=== PATIENT | female | born 1975 | race Caucasian/White ===

== ENCOUNTER 2016-11-04 21:00 | Inpatient (IN) | payer MEDICAID ==
--- NOTE | ~2016-11-04 | HP ---
Unit #: [id number] #: [id number] Patient: MARIAELENA KRUGER [id number] [facility] [address] [place] [address] [id number] MR#: [id number] NAME: MARIAELENA KRUGER ROOM: 32 Age: 41 Sex: F Admission Date: 11/05/2016 : 1975 Attending Physician: Orion Barajas M.D. Admitting Physician: Orion Barajas M.D. Primary Care Physician: Primary Care Physician No HISTORY AND PHYSICAL HISTORY OF PRESENT ILLNESS Mariaelena is a 41 year old admitted to [address] [place] [address] with depression and verbalizing wanting to hurt herself and reporting auditory hallucinations. She has had other admissions to this facility. PAST MEDICAL HISTORY 1. Crohn's disease. 2. History of migraines. PAST SURGICAL HISTORY 1. Cholecystectomy. 2. Hysterectomy. ALLERGIES No known drug allergies. SOCIAL HISTORY Smokes less than 1/2 pack per day. Denies alcohol and illicit drug use. FAMILY HISTORY Medically noncontributory. REVIEW OF SYSTEMS CONSTITUTIONAL: No fever or chills. HEENT: Denies any sore throat, ear pain or runny nose. CARDIOVASCULAR: Denies chest pain, irregular heart rhythm or palpitations. CHEST: Denies shortness of breath or cough. No hemoptysis. GASTROINTESTINAL: Denies nausea, vomiting, diarrhea or chronic constipation. ENDOCRINE: Denies history of increased thirst or urination. No recent significant weight loss or gain. GENITOURINARY: Denies dysuria, frequency, or hematuria. SKIN: Denies any rashes. HEMATOLOGIC: Denies history of increased bleeding or bruising. MUSCULOSKELETAL: Denies any hot, swollen joints. No generalized muscle pain. NEUROLOGIC: Denies problems with vision or speech. No frequent, severe headaches. No numbness, tingling or weakness in any extremities. Denies loss of bladder or bowel control. CURRENT MEDICATIONS 1. Depakote ER 1000 mg q.h.s. 2. Neurontin 600 mg t.i.d. Unit #: [id number] #: [id number] Patient: MARIAELENA KRUGER 3. Latuda 20 mg daily. 4. Flexeril 5 mg t.i.d. p.r.n. 5. Motrin p.r.n. 6. Milk of Magnesia p.r.n. 7. Maalox p.r.n. 8. Tylenol p.r.n. 9. Topamax 200 mg daily. 10. Strattera 80 mg daily. 11. Lamictal 100 mg daily. 12. Nicotine patch 7 mg daily. PHYSICAL EXAMINATION GENERAL: Alert, well-nourished, in no apparent distress. VITAL SIGNS: Blood pressure 130/78, heart rate 80, respirations 16, temperature 98.6. WEIGHT: 133. HEIGHT: 5 feet 2 inches. SKIN: Warm and dry without rash or lesion. HEENT: Normocephalic. TMs not viewed. Oral and nasal passages clear. Conjunctivae clear. PERRLA. EOMs intact. NECK: Supple without lymphadenopathy or thyromegaly. HEART: Regular rate and rhythm without murmur. LUNGS: Clear. ABDOMEN: Soft, nontender. : Not done. EXTREMITIES: No evidence of cyanosis, clubbing or edema. Moves all without focal deficit. NEUROLOGICAL: Grossly within normal limits. Cranial Nerves: II: Visual potter are intact. III, IV AND : Extraocular movements are intact. Pupils are equal, round and reactive to light. V: Facial sensation is grossly normal. VII: Facial movements and expression are normal. VIII: Auditory acuity grossly intact. IX, X: Uvula is midline. Phonation is normal. XI: Patient shrugs shoulders and turns head normally. XII: Tongue protrudes in the midline. Sensory and Motor Function: Sensory and motor sensation is grossly normal. Motor: moves all extremities well. Coordination: Gait is normal. Deep Tendon Reflexes: Intact. IMPRESSION Psychiatric admission. RECOMMENDATIONS PSYCHIATRIC: Per psychiatrist. MEDICAL: See no contraindication to participate in facility's activities. MEDICAL PROGNOSIS Good. MEDICAL CONDITION Stable. Dictated by... Mariluz Carney P.A.-C. for Gian Urbina M.D. Unit #: [id number] #: [id number] Patient: MARIAELENA KRUGER/bridgette TD: 11/06/2016 14:55 JOB #: [id number] HISTORY AND PHYSICAL Page 1 of 1 X Mariluz Carney X HISTORY AND PHYSICAL
--- NOTE | ~2016-11-04 | PA ---
Unit #: [id number] #: [id number] Patient: MARIAELENA KRUGER [id number] [facility] [address] [place] [address] [id number] I MR#: [id number] NAME: MARIAELENA KRUGER ROOM: [facility] Age: 41 Sex: F Admission Date: 11/05/2016 : 1975 Date of Assessment: 11/05/2016 Attending Physician: Orion Barajas M.D. Admitting Physician: Orion Barajas M.D. Primary Care Physician: Primary Care Physician No PSYCHIATRIC ASSESSMENT IDENTIFYING INFORMATION The patient is a 41-year-old white female admitted with increasing paranoid thoughts and suicidal ideation. INFORMANT(S) Patient and chart. RELIABILITY Good. CHIEF COMPLAINT None given. HISTORY OF PRESENT ILLNESS The patient is a 41-year-old white female who reports a history of treatment for bipolar disorder through the auspices of "[facility]." She reports that she has been on her medications. She reports that a recent bout with migraine headache led to her being on a steroid Dosepak and she reports that because of this she feels as though she may have had destabilization in her mood symptoms reporting positive manic symptoms as well as suicidal ideation. The patient does have a history of one previous suicide attempt per her report. She also has a history of heavy alcohol use but reports that she has not used in a year and a half. 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 Her current psychotropic medications include Depakote, Lamictal, Strattera, Seroquel, Neurontin and Topamax. Patient continues to endorse positive suicidal ideation during today's interview but was generally calm and pleasant and exhibits none of the stigmata of a manic episode. PAST PSYCHIATRIC HISTORY As above. FAMILY HISTORY Noncontributory. SOCIAL HISTORY The patient completed 2 years of college. 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 She reports substance use history as noted previously and is a smoker. MEDICAL HISTORY Significant for a history of migraine headache. Unit #: [id number] #: [id number] Patient: MARIAELENA KRUGER MEDICATION HISTORY 1. Cyclobenzaprine. 2. Ibuprofen. 3. Topamax. 4. Neurontin. 5. Seroquel. 6. Strattera. 7. Lamictal. 8. Depakote ER. ALLERGIES Mesalamine. MENTAL STATUS EXAM At this time, reveals the patient to be a well-developed, well-nourished white female appearing her stated age. She is in no apparent physical distress at the time of examination. She is awake, alert, oriented in all spheres. Her mood is dysphoric. Her affect constricted. Speech is generally relevant and coherent. There are no gross deficits in memory or cognition noted. Intelligence is judged to be in the average range based on fund of knowledge. The patient is cooperative throughout the interview. She continues to endorse positive suicidal ideation. She denies homicidal ideation. She denies any psychotic symptoms. Her judgement and insight appear to be reasonably intact. ASSETS AND LIABILITIES Patient's assets to be assessed. Liabilities, lack of resources. ADMITTING DIAGNOSES 1. Bipolar disorder, mixed phase. 2. History of alcohol use disorder by history. 3. Migraines by history. PSYCHIATRIC PLAN/TREATMENT GOALS The patient remains hospitalized for safety and stabilization. We will restart previously prescribed medications but will discontinue Seroquel instead replacing this with Latuda 20 mg daily to address symptoms of bipolar depression. The patient will participate in appropriate guo and milieu activities. ESTIMATED LENGTH OF STAY Five to seven days. Dictated by... Orion Barajas M.D. ANA/bridgette TD: 11/05/2016 20:19 JOB #: [id number] Unit #: [id number] #: [id number] Patient: MARIAELENA KRUGER PSYCHIATRIC ASSESSMENT Page 1 of 1 X Orion Barajas MD X PSYCHIATRIC ASSESSMENT
--- NOTE | ~2016-11-04 | DS ---
Unit #: [id number] #: [id number] Patient: MARIAELENA KRUGER [id number] [facility] [address] [place] [address] [id number] I MR#: [id number] NAME: MARIAELENA KRUGER ROOM: [facility] Age: 41 Sex: F Admission Date: 11/05/2016 : 1975 Discharge Date: 11/12/2016 Attending Physician: Orion Barajas M.D. Primary Care Physician: Primary Care Physician No DISCHARGE SUMMARY REASON FOR ADMISSION The patient is a 41-year-old, , white female, admitted in a mixed phase of bipolar disorder. HOSPITAL COURSE The patient was admitted to the [address] [place] [address] unit and continued on previously prescribed medications. Given her complaints of depressed mood, she was begun on lurasidone 20 mg daily and continued on her other rather aggressive pharmacotherapeutic regimen for her "bipolar disorder." The patient was initially hesitant to participation within the therapeutic milieu, but after being threatened with room lockout, did increase her participation. By 11/12/2016, the patient was noted to be tolerating medications. She had made arrangements to go to "[facility]" upon her discharge from the hospital and discharge was ordered. FINAL DIAGNOSES Bipolar disorder, mixed phase; borderline personality traits; alcohol dependence; alcohol use disorder by history. DISPOSITION ON DISCHARGE The patient is discharged on the following medications; lurasidone 20 mg daily for bipolar depression, Depakote ER 1000 mg at bedtime for mood stabilization, Lamictal 100 mg once daily for mood stabilization, Strattera 80 mg q.a.m. for ADHD, Neurontin 600 mg t.i.d. for anxiety, Topamax 200 mg once daily for migraine headache, Motrin 600 mg q.8 hours p.r.n. pain, Flexeril 5 mg t.i.d. for muscle relaxation, Imitrex 50 mg p.r.n. migraine headache. DISCHARGE INSTRUCTIONS No dietary or physical restrictions were placed on the patient at the time of discharge. FOLLOWUP As noted previously, she will follow up through the auspices of "[facility]." PROGNOSIS Her prognosis is considered fair. It should be noted that this physician did suspect that the patient was attempting to extend her stay in the hospital secondary to what this physician suspects is the patient's homeless status. Unit #: [id number] #: [id number] Patient: MARIAELENA KRUGER Dictated by... Ema House TD: 11/13/2016 04:29 JOB #: [id number] DISCHARGE SUMMARY Page 1 of 1 X Orion Barajas MD X DISCHARGE SUMMARY
--- NOTE | ~2016-11-04 | CO ---
Unit #: [id number] #: [id number] Patient: MARIAELENA KRUGER [id number] [facility] [address] [place] [address] [id number] I MR#: [id number] NAME: MARIAELENA KRUGER ROOM: [facility] Age: 41 Sex: F Admission Date: 11/05/2016 : 1975 Attending Physician: Orion Barajas M.D. Primary Care Physician: Primary Care Physician No Consultation Date: 11/09/2016 CONSULTATION REPORT JAKUB Morales is a 41-year-old with history of migraines. She usually takes Imitrex at home with good result. An order was written for Imitrex 50 mg one p.o. at onset of headache with an additional 50 mg in 2 hours if necessary. Nursing staff is to let us know if there are any concerns. Dictated by... Mariluz Carney P.A.-C. for Ema Kelly/sanford TD: 11/11/2016 02:55 JOB #: [id number] CONSULTATION REPORT Page 1 of 1 X Mariluz Carney CONSULTATION REPORT
--- NOTE | ~2016-11-04 | PN ---
Unit #: [id number] #: [id number] Patient: MARIAELENA KRUGER [id number] [facility] [address] [place] [address] [id number] I MR#: [id number] NAME: MARIAELENA KRUGER ROOM: [facility] Age: 41 Sex: F Admission Date: 11/05/2016 : 1975 Attending Physician: Oroin Barajas M.D. Admitting Physician: Orion Barajas M.D. Primary Care Physician: Primary Care Physician Ebony LANZA PROGRESS NOTES DATE 11/10/2016 DISCUSSION The patient states that she is feeling a bit better today and is reporting some reduction in suicidal ideation. She is tolerating medications and her sleep has improved. She is more active in the therapeutic milieu. She is now expressing interest in residential chemical dependence treatment following discharge from the hospital and I will ask her outreach and education social worker to see her regarding this, we expect discharge by the end of the week. Dictated by... Orion Barajas M.D. CB/matt TD: 11/10/2016 12:51 JOB #: [id number] POOL PROGRESS NOTES Page 1 of 1 X Orion Barajas MD X PROGRESS NOTE
--- NOTE | ~2016-11-04 | PN ---
Unit #: [id number] #: [id number] Patient: MARIAELENA KRUGER [id number] [facility] [address] [place] [address] [id number] MR#: [id number] NAME: MARIAELENA KRUGER ROOM: 32 Age: 41 Sex: F Admission Date: 11/05/2016 : 1975 Attending Physician: Orion Barajas M.D. Admitting Physician: Orion Barajas M.D. Primary Care Physician: Primary Care Physician Ebony LANZA PROGRESS NOTES DATE 11/06/2016 DISCUSSION The patient reports that her suicidal ideation is "worse than ever" today. She is complaining of poor sleep but otherwise tolerated initiation of Latuda without complaint. I will add melatonin 5 mg at h.s. in hopes of addressing the patient's complaints of anxiety. We await transfer of the patient to [address] [place] [address]. Dictated by... Orion Barajas M.D. CB/bridgette TD: 11/06/2016 12:50 JOB #: [id number] [facility] PROGRESS NOTES Page 1 of 1 X Orion Barajas MD X PROGRESS NOTE
--- NOTE | ~2016-11-04 | PN ---
Unit #: [id number] #: [id number] Patient: MARIAELENA KRUGER [id number] [facility] [address] [place] [address] [id number] I MR#: [id number] NAME: MARIAELENA KRUGER ROOM: [facility] Age: 41 Sex: F Admission Date: 11/05/2016 : 1975 Attending Physician: Orion Barajas M.D. Admitting Physician: Orion Barajas M.D. Primary Care Physician: Primary Care Physician Ebony LANZA PROGRESS NOTES DATE 11/09/2016 DISCUSSION The patient is a bit brighter today, she requests permission to attend the on-grounds AA meeting this evening, she is continuing to endorse positive suicidal ideation but is able to promise safety insight the hospital. We continue current treatment. The patient is requesting referral to a "dual diagnosis program." Dictated by... Orion Barajas M.D. CB/matt TD: 11/09/2016 13:07 JOB #: [id number] [facility] PROGRESS NOTES Page 1 of 1 X Orion Barajas MD PROGRESS NOTE
--- NOTE | ~2016-11-04 | PN ---
Unit #: [id number] #: [id number] Patient: MARIAELENA KRUGER [id number] [facility] [address] [place] [address] [id number] I MR#: [id number] NAME: MARIAELENA KRUGER ROOM: [facility] Age: 41 Sex: F Admission Date: 11/05/2016 : 1975 Attending Physician: Orion Barajas M.D. Admitting Physician: Orion Barajas M.D. Primary Care Physician: Primary Care Physician Ebony LANZA PROGRESS NOTES DATE 11/08/2016 DISCUSSION The patient's participation within the therapeutic milieu has increased somewhat. She continues to complain of dysphoric mood, anxiety, and positive suicidal ideation. Her expectations of inpatient care are today again firmly redirected. We continue current pharmacotherapy. Dictated by... Ema House TD: 11/08/2016 13:41 JOB #: [id number] POOL PROGRESS NOTES Page 1 of 1 X Orion Barajas MD PROGRESS NOTE
--- NOTE | ~2016-11-04 | PN ---
Unit #: [id number] #: [id number] Patient: MARIAELENA KRUGER [id number] [facility] [address] [place] [address] [id number] I MR#: [id number] NAME: MARIAELENA KRUGER ROOM: [facility] Age: 41 Sex: F Admission Date: 11/05/2016 : 1975 Attending Physician: Orion Barajas M.D. Admitting Physician: Orion Barajas M.D. Primary Care Physician: Primary Care Physician Ebony BROOKS NOTES DATE 11/07/2016 DISCUSSION The patient is gently but firmly confronted today regarding her failure to participate within the therapeutic milieu. The patient appears to be fabricating symptoms of increased paranoia which seems to be possibly aimed at extending her stay in the hospital. Her expectations of inpatient care firmly reiterated today as is my expectations that she participate in every group activity made available to her. She continues to endorse suicidal ideation and paranoid thinking. I have spoken with the patient regarding the fact that if she continues to decline such simple request as laboratory data and participates within the therapeutic milieu that we will need to consider room lock out to assure her safety and compliance with the therapeutic milieu. Dictated by... Orion Barajas M.D. CB/della TD: 11/08/2016 01:03 JOB #: [id number] POOL BROOKS NOTES Page 1 of 1 X Orion Barajas MD PROGRESS NOTE
--- NOTE | ~2016-11-04 | PN ---
Unit #: [id number] #: [id number] Patient: MARIAELENA KRUGER [id number] [facility] [address] [place] [address] [id number] I MR#: [id number] NAME: MARIAELENA KRUGER ROOM: [facility] Age: 41 Sex: F Admission Date: 11/05/2016 : 1975 Attending Physician: Orion Barajas M.D. Admitting Physician: Orion Barajas M.D. Primary Care Physician: Primary Care Physician Ebony LANZA PROGRESS NOTES DATE 11/11/2016 DISCUSSION The patient appears to be attempting to erect barriers to discharge today claiming that she is having "auditory and visual stuff." She continues to state that she is sure that she will "self medicate" if discharged from the hospital. I have today firmly redirected the patient's expectations of inpatient care and we continue current treatment with expectation of a.m. discharge. Dictated by... Orion Barajas M.D. CB/bridgette TD: 11/11/2016 15:41 JOB #: [id number] POOL PROGRESS NOTES Page 1 of 1 X Orion Barajas MD X PROGRESS NOTE
[2016-11-09 10:03] LABS: URINE APPEARANCE CLEAR; URINE BILIRUBIN NEG (NEG); URINE BLOOD NEG (NEG); URINE COLOR YELLOW; URINE GLUCOSE NEG (NEG); URINE KETONE NEG (NEG); URINE LEUKOCYTE ESTERASE NEG (NEG); URINE NITRATE NEG (NEG); URINE PROTEIN NEG (NEG); URINE SPECIFIC GRAVITY 1.011 (1.003-1.035); URINE UROBILINOGEN 0.2 MG/DL (NEG)
[2016-11-09 10:26] LABS: AMPHETAMINE NEG (NEG); BARBITURATES NEG (NEG); BENZODIAZEPINES NEG (NEG); COCAINE NEG (NEG); MARIJUANA NEG (NEG); OPIATES NEG (NEG); TRICYCLIC ANTIDEPRESSANTS NEG (NEG); U METHADONE NEG (NEG)
== END 2016-11-12 15:20 | disposition home or self-care (01) | DRG 885 ==
LOC: P2L 11-05 03:55 → POF 11-05 03:55 → P1S 11-05 03:55 → P2L 11-06 15:45
PROVIDERS: Specialist
DX: F31.60 Bipolar disorder, current episode mixed, unspecified (principal); K50.90 Crohn's disease, unspecified, without complications; R45.851 Suicidal ideations; F17.210 Nicotine dependence, cigarettes, uncomplicated; G43.909 Migraine, unspecified, not intractable, without status migrainosus; F60.3 Borderline personality disorder; F10.20 Alcohol dependence, uncomplicated; F41.9 Anxiety disorder, unspecified
CPT/HCPCS: 80307; 81003